=== PATIENT | female | born 1940 | race Caucasian/White ===

== ENCOUNTER 2024-04-11 20:31 | Inpatient (IN) | payer OTHER, SELFPAY ==
[2024-04-11 14:43] VITALS: BP 106/48
[2024-04-11 14:57] LABS: % Basophils 0.4 % (0-2); % Eosinophils 0.8 % (0-6); % Immature Granulocytes 0.9 % (0-0.5); % Lymphocytes 9.7 % (20.5-51.1); % Monocytes 9.4 % (1.7-9.3); % Neutrophils 78.8 % (42.2-75.2); Absolute Basophils 0.1 10^3/uL (0-0.2); Absolute Eosinophils 0.1 10^3/uL (0-0.7); Absolute Immature Granulocytes 0.1 10^3/uL (0-0.05); Absolute Lymphocytes 1.2 10^3/uL (1.2-3.4); Absolute Monocytes 1.2 10^3/uL (0.1-0.6); Absolute Neutrophils 9.8 10^3/uL (1.4-6.5); Hematocrit 30.3 % (37.0-47.0); Hemoglobin 10.5 g/dL (12.0-16.0); Mean Corp Hgb Conc. 34.7 g/dL (33.0-37.0); Mean Corpuscular Hgb 31.7 pg (27.0-31.0); Mean Corpuscular Volume 91.5 fL (81.0-99.0); Mean Platelet Volume 8.7 fL (7.4-10.4); Nucleated Red Blood Cells % 0 %; Platelet Count 402 10^3/uL (130-400); Red Blood Cell Count 3.31 10^6/uL (4.20-5.40); Red Cell Dist. Width 13.3 % (11.5-14.5); White Blood Cell Count 12.5 10^3/uL (4.8-10.8)
[2024-04-11 15:16] LABS: ALT (SGPT) 26 U/L (0-35); AST (SGOT) 50 U/L (14-36); Albumin 3.5 g/dl (3.5-5.0); Alkaline Phosphatase 158 U/L (38-126); Blood Urea Nitrogen 41 mg/dl (7-17); Calcium 9.5 mg/dl (8.4-10.2); Carbon Dioxide 27 mmol/L (22-30); Chloride 90 mmol/L (98-107); Glucose 106 mg/dl (70-99); Sodium 125 mmol/L (135-145); Total Bilirubin 0.9 mg/dl (0.2-1.3); Total Protein 6.3 g/dl (6.3-8.2); eGFR > 60.00
--- NOTE | 2024-04-11 16:59 | ED.SKININJ ---
HPI-Injury
General
Chief Complaint: Skin Problem
Source: patient
Exam Limitations: none
Time Seen by Provider: 04/11/24 16:44
History of Present Illness-Injury
Initial Injury comments:
83-year-old female presents with increased redness swelling and discomfort to the left leg. She has had wounds to the left leg for quite some time and is seen by wound care. Has also recently seen family doctor. She has been on Bactrim for
cellulitis of the left leg and it is not improving. She was sent in by both wound care and family doctor for IV antibiotics. She denies fevers. She has a history of hyponatremia. She is not anticoagulated. No other complaints at this time
Phy Exam
Physical Exam
Physical Exam:
General: Well-appearing female no acute respiratory distress
HEENT: Normocephalic atraumatic
Heart: Regular rate and rhythm no murmur
Lungs: Clear no wheeze
Skin: Erythema and open wounds noted to the left leg. Erythema spreads from the toes up to the knee. This is warm to the touch and tender
Vascular: Bilateral feet are warm to the touch
Course
Orders/Labs/Results
Orders:
Orders
04/11/24 14:51
CMP [Comprehensive Metabolic Panel] Urgent
Complete Blood Count/With Diff Urgent
Magnesium Urgent
Comment: ADD ON
04/11/24 16:46
Add On- LAB Urgent
Tests Added?: magnesium
Electrocardiogram (*1) Urgent
Reason for Study: Other
Other Reason for Exam: elevated Potassium
EKG- Treatment ONCE
04/11/24 17:49
Lactic Acid Q4H
Comment: CANCEL 2nd LACTIC ACID IF 1st LACTIC ACID IS LESS THAN 2
Blood Culture Q30M
ERICA Source: Blood/Venous
Specimen Description:
04/11/24 18:11
CeFAZolin 1 GRAM [Ancef] 1 gram in 5 ml IV NOW
04/11/24 18:15
Blood Culture Q30M
ERICA Source: Blood/Venous
Specimen Description:
04/11/24 21:45
Lactic Acid Q4H
Comment: CANCEL 2nd LACTIC ACID IF 1st LACTIC ACID IS LESS THAN 2
Abnormal Lab Results
04/11/24
14:51
WBC 12.5 H 10^3/uL
(4.8-10.8)
RBC 3.31 L 10^6/uL
(4.20-5.40)
Hgb 10.5 L g/dL
(12.0-16.0)
Hct 30.3 L %
(37.0-47.0)
MCH 31.7 H pg
(27.0-31.0)
Plt Count 402 H 10^3/uL
(130-400)
Abs Immat Gran (auto) 0.1 H 10^3/uL
(0-0.05)
Absolute Neuts (auto) 9.8 H 10^3/uL
(1.4-6.5)
Absolute Monos (auto) 1.2 H 10^3/uL
(0.1-0.6)
Immature Gran % 0.9 H %
(0-0.5)
Neutrophils % 78.8 H %
(42.2-75.2)
Lymphocytes % 9.7 L %
(20.5-51.1)
Monocytes % 9.4 H %
(1.7-9.3)
Sodium 125 L mmol/L
(135-145)
Potassium 6.0 H mmol/L
(3.5-5.1)
Chloride 90 L mmol/L
(98-107)
BUN 41 H mg/dl
(7-17)
Glucose 106 H mg/dl
(70-99)
AST 50 H U/L
(14-36)
Alkaline Phosphatase 158 H U/L
(38-126)
04/11/24 14:51
04/11/24 14:51
Vital Signs
Initial and Last Documented VS:
Initial Vital Signs
Temp Pulse Resp BP Pulse Ox
97.8 F 71 18 106/48 100
04/11/24 14:43 04/11/24 14:43 04/11/24 14:43 04/11/24 14:43 04/11/24 14:43
Last Documented Vital Signs
Temp Pulse Resp BP Pulse Ox
97.8 F 71 18 106/48 100
04/11/24 14:43 04/11/24 14:43 04/11/24 14:43 04/11/24 14:43 04/11/24 14:43
MDM/Problems Addressed
Differential Diagnosis Includes:
Cellulitis left leg not responding to oral antibiotics as outpatient. Start Ancef IV. Review of labs demonstrate hyponatremia. Her sodium is 125. No priors to compare however they show me labs from last week which demonstrated sodium 128. Due
to failure of outpatient treatment for cellulitis will admit to hospital.
*Critical Care Note
Total Time (30-74mins, 75-104mins- exclusive of procedures): Not Applicable
ED Attending Note
-
Portions of this chart may have been created with voice recognition software.� Occasional wrong word or��sound alike� substitutions may have occurred due to the inherent limitations of voice recognition software.
Discharge Plan
Departure
Patient Disposition: Admit
Date of Disposition: 04/11/24
Time of Disposition: 18:15
Presentation/result/management discussed w/ accepting MD/DO: Hospitalist
Discharge Problem:
Cellulitis
Interventions
Interventions:
*Risk Screen - Suicide Last Done: 04/11/24 14:43
*General Assessment Last Done: 04/11/24 14:43
*ED COVID-19 Vaccine History Last Done: 04/11/24 14:43
Discharge Date and Time
Print Language: MAORI
[2024-04-11 17:23] LABS: Magnesium 2.1 mg/dl (1.6-2.3)
[2024-04-11 17:45] VITALS: BP 121/59
[2024-04-11 18:10] LABS: Lactic Acid 0.9 mmol/L (0.7-2.0)
[2024-04-11] MEDS: TYLENOL 650 MG PO (18:33)
[2024-04-11] MEDS: MOTRIN 400 MG PO (18:35)
--- NOTE | 2024-04-11 18:53 | HPS.HSE ---
Family Physician
-
Family Physician: Dakotah Diallo MD
Chief Complaint
-
Left lower extremity ulceration/circumferential erythema
History of Present Illness
83-year-old female complaining of redness, swelling and discomfort to her left leg starting approximately 5 to 6 days ago she has a left lateral malleolus wound for the past 1.5 months with history of venous insufficiency diagnosed by Dr. Braun
October 2023.. She states she had a ulcer to her right lower extremity lateral malleolus in the spring 2023 Dr. Braun did a saphenous vein ablation bilateral thighs and right lower extremity in October 2023 the wound is still present linear in
shape and she is following with wound care Dr. Soto at [facility]. She states the left lower extremity has become red over the past 5 to 6 days and swollen with +2 edema she has a blister to the dorsal aspect of the foot just below
the third metatarsal circumferential erythema from the foot up to knee. She denies any injury. She was placed on Bactrim by her PCP. She is been on Bactrim approximately 5 days with no improvement. She was sent to the ER by wound care and PCP
recommendations for IV antibiotics. 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
Medical History
Past Medical History
Past Medical History: Reports Other
Additional Past Medical History:
hyponatremia
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
autoimmune alopecia
Chronic venous insufficiency Dx October 2023
Past Surgical History: Reports Other
Additional Past Surgical History:
Appendectomy
Tonsillectomy
Saphenous vein ablation bilateral thighs and right lower extremity October 2023
Lower facelift approximately 10 years ago
Social History
Tobacco: Non-smoker
Alcohol: Daily (States measures out 4 ounces of wine every night)
Drug: None
Personal:
Living: With Family ( Vasyl)
Employment: Retired
Family History
Family History: Other (Mother breast CA, father COPD history venous insufficiency)
Allergies / Home Medications
Allergies reflects when Allergies were last updated in [facility].
Home Medications with original date entered in [facility]
Allergy/Medication List:
Allergies
Allergy/AdvReac Type Severity Reaction Status Date / Time
No Known Allergies Allergy Unverified 04/11/24 14:47
Home Medications
ascorbic acid (vitamin C) 500 mg tablet (Vitamin C) 500 mg PO DAILY 04/11/24
calcium 600 mg (as carbonate)-vitamin D3 10 mcg (400 unit) tablet (Calcium 600 + D(3)) 1 tab PO DAILY 04/11/24
cetirizine 10 mg tablet (Zyrtec) 10 mg PO DAILYPRN PRN allergies 04/11/24
denosumab 60 mg/mL subcutaneous syringe (Prolia) 60 mg SC [id number] 04/11/24
gabapentin 300 mg capsule 300 mg PO TID 04/11/24
magnesium oxide 250 mg PO DAILY 04/11/24
omega [id number] oil 1,000 mg (120 mg-180 mg) capsule (Fish Oil) 2 cap PO DAILY 04/11/24
sulfamethoxazole 800 mg-trimethoprim 160 mg tablet (Bactrim DS) 1 tab PO BID 04/11/24
therapeutic multivitamin 1 tab PO DAILY 04/11/24
Review of Systems
-
History Source: Patient
A 12 point ROS was completed and negative except as noted: Yes
Constitutional: Denies Fever, Fatigue or Chills
EENT: Denies Sore Throat or Runny Nose
Respiratory: Denies Cough or Trouble Breathing
Cardiac: Denies Chest Pain, Diaphoresis, Palpitations or Syncope
Abdomen/GI: Denies Abdominal Pain, Nausea, Vomiting, Diarrhea, Constipated, Bloody Stools or Black Stools
: Denies Dysuria, Frequency, Flank Pain, Incontinence, Difficulty Voiding or Urgency
Musculoskeletal: Reports Edema (+3 edema from knee to foot with circumferential erythema, blister dorsal aspect foot base of third metatarsal, bilateral malleolar ulcerations left 1.5 months right spring 2023); Denies Joint Pain
Skin: Denies Itching or Rash
Neurological: Denies Dizzy, Headache or Weakness
Endocrine: Reports No Symptoms
Hematologic/Lymphatic: Reports No Symptoms
Psych: Reports Calm
Physical Exam
Vital Signs
Vital Signs
Temp Pulse Resp BP Pulse Ox
97.8 F 83 20 121/59 98
04/11/24 14:43 04/11/24 18:45 04/11/24 17:45 04/11/24 17:45 04/11/24 18:30
Physical Exam
General: Conversant; No Fever or Chills
HEENT: NormoCephalic, Anicteric, Moist mucous membranes, PERRLA, Aneth Conjunctivae and No Ptosis
Respiratory: Clear; No Wheezes, Rales or Rhonchi
Cardiac: S1/S2, Regular Rhythm and Peripheral Edema (Left lower extremity +3); No Murmur, Rub or Gallop
Breast: Deferred by me
GI: Soft, Non Tender, Non Distended, Normal Bowel Sounds and No Hepatosplenomegaly
Rectal: Deferred by Provider
Musculoskeletal: No Clubbing, No Cyanosis and Edema, Left Lower Extremity (+3 edema from knee to foot with circumferential erythema, blister dorsal aspect foot base of third metatarsal, bilateral malleolar ulcerations left 1.5 months right spring
2023); No Edema, Left Upper Extremity, Edema, Right Upper Extremity or Edema, Right Lower Extremity
Skin: Warm and Dry; No Rash
Neuro: AO x 3, No Motor Deficits, Cranial Nerves Intact and No Sensory Deficits; No Slurred Speech, Facial Droop, Tremors or Sedated
Psych: Calm
Laboratory Results
-
04/11/24 14:51
04/11/24 14:51
Laboratory Results
Lactic Acid 0.9 mmol/L (0.7-2.0) 04/11/24 17:49
Total Bilirubin 0.9 mg/dl (0.2-1.3) 04/11/24 14:51
AST 50 U/L (14-36) H 04/11/24 14:51
ALT 26 U/L (0-35) 04/11/24 14:51
Alkaline Phosphatase 158 U/L (38-126) H 04/11/24 14:51
Data Reviewed
-
Lab Data: Labs Reviewed by me
Impression/Plan
-
Impression/plan:
Admit to telemetry
#Acute LEFT lower extremity cellulitis with chronic bilateral malleolar ulcerations
#Chronic RIGHT lower malleolar ulceration since Spring 2023
#Chronic Venous insufficiency-follows with Dr. Braun
#History of saphenous vein ablation bilateral thighs and right lower leg
WBC 12.5 with left shift, afebrile 97.8, HR 83, 121/59
Patient follows with wound care Dr. Soto at [facility]
-Check venous Doppler left lower extremity
-IV Cefazolin
-Consult [place] wound care
-Follow CBC, CMP, blood cultures x 2 sent by ER
-Consult PT/OT/case management
#Acute hyperkalemia
K 6.0
-Patient given Lokelma 10 g in ER
-Will repeat BMP every 6 hours on 04/12 @0200
-Stop Bactrim has been on approximately 5 days
EKG: NSR 81 bpm, QTc 425 MS no peaked T waves, no previous EKGs
-Check magnesium
#Acute hyponatremia with history of reported hyponatremia
NA 125-no prior labs
Will fluid restrict to 40 ounces suspect due to daily alcohol use
-Check urine NA, urine Osmo, serum Osmo, TSH with free T4 reflex, random cortisol
#Daily alcohol use
Drinks 4 ounces of wine daily states measures that out in a measuring cup
MSAs screen with protocol
-IV thiamine, IV folate
#Hypomagnesemia
Magnesium 2.1
-Continue Mag-Ox to 50 mg daily
#Anemia
Hgb 10.5, MCV 91.5
Will check iron panel, B12, folate
DVT prophylaxis
Subcu Lovenox
Diet regular, fluid restrict 40 ounce
Full code
[2024-04-11 19:30] LABS: Osmolality Serum 275 mOsm/kg (275-300)
[2024-04-11 19:39] LABS: Phosphorus 6.3 mg/dl (2.5-4.5)
--- NOTE | 2024-04-11 19:56 | W.PN.UPDATE ---
Update Note
Progress Note Update
This is an addendum to the H&P written by Dinah Baltazar on 04/11/2024.� Patient seen examined independent with [facility].
83-year-old female past medical history of venous insufficiency, hyponatremia, autoimmune alopecia, chronic ulcerations, daily alcohol use presenting with redness of chronic ulceration of left lower extremity lateral malleolus over the past 5 to 6
days.� Started on Bactrim by primary care.
Labs show leukocytosis.� Sodium 125.� Potassium 6.
Patient with cellulitis of right lower extremity.� Cefazolin.� Wound care.� Check venous ultrasound.
Hyperkalemia likely secondary to Bactrim recently started.� Hyponatremia likely secondary to alcohol use.
40-ounce fluid restriction.� Lokelma given.� Recheck BMP in 6 hours.
[2024-04-11 19:59] LABS: TSH Reflex To Free T4 2.45 uIU/ml (0.47-4.68)
[2024-04-11] MEDS: LOKELMA 10 GRAM PO (20:52)
[2024-04-11 20:56] VITALS: BP 105/90
[2024-04-11] MEDS: ANCEF 5 IV (21:58)
[2024-04-11 22:00] VITALS: BP 100/42
[2024-04-12] VITALS (10 sets, daily range): BP systolic 93–125; BP diastolic 42–63; PULSE 87–88; O2SAT 98–99; BMI 18.1
[2024-04-12 01:20] LABS: Osmolality Urine 318 mOsm/kg (300-900)
[2024-04-12 03:34] LABS: Alcohol None Detected; Blood Urea Nitrogen 31 mg/dl (7-17); Calcium 9.1 mg/dl (8.4-10.2); Carbon Dioxide 27 mmol/L (22-30); Chloride 96 mmol/L (98-107); Estimated Creatinine Clearance 46 ml/min; GGTP 57 U/L (12-43); Glucose 95 mg/dl (70-99); Phosphorus 5.3 mg/dl (2.5-4.5); Potassium 5.3 mmol/L (3.5-5.1); Sodium 131 mmol/L (135-145); eGFR > 60.00
[2024-04-12 03:40] LABS: B-Hydroxybutyrate 0.34 mmol/L (0.02-0.27)
[2024-04-12] MEDS: TYLENOL 650 MG PO ×3 (03:52→21:26)
[2024-04-12] MEDS: THIAMINE INJECTION 200 MG IV ×3 (04:08→20:49)
[2024-04-12] MEDS: NEURONTIN 300 MG PO ×4 (04:08→21:18)
[2024-04-12 04:14] LABS: Urine Sodium 19 mmol/L (30-90)
[2024-04-12] MEDS: ANCEF 5 IV ×3 (05:17→21:19)
[2024-04-12 06:32] LABS: % Basophils 0.7 % (0-2); % Eosinophils 1.2 % (0-6); % Immature Granulocytes 1.2 % (0-0.5); % Lymphocytes 13.4 % (20.5-51.1); % Monocytes 11.1 % (1.7-9.3); % Neutrophils 72.4 % (42.2-75.2); Absolute Basophils 0.1 10^3/uL (0-0.2); Absolute Eosinophils 0.1 10^3/uL (0-0.7); Absolute Immature Granulocytes 0.1 10^3/uL (0-0.05); Absolute Lymphocytes 1.2 10^3/uL (1.2-3.4); Absolute Neutrophils 6.3 10^3/uL (1.4-6.5); Hematocrit 28.8 % (37.0-47.0); Mean Corp Hgb Conc. 34.7 g/dL (33.0-37.0); Mean Corpuscular Hgb 31.3 pg (27.0-31.0); Mean Corpuscular Volume 90.3 fL (81.0-99.0); Mean Platelet Volume 8.7 fL (7.4-10.4); Nucleated Red Blood Cells % 0 %; Platelet Count 406 10^3/uL (130-400); Red Blood Cell Count 3.19 10^6/uL (4.20-5.40); Red Cell Dist. Width 13.2 % (11.5-14.5); White Blood Cell Count 8.7 10^3/uL (4.8-10.8)
[2024-04-12 06:38] LABS: INR 1.06; PT 14.1 Sec (11.4-14.6)
[2024-04-12 06:39] LABS: APTT 40.3 Sec (23.4-35.0)
[2024-04-12 07:11] LABS: ALT (SGPT) 23 U/L (0-35); AST (SGOT) 46 U/L (14-36); Albumin 2.8 g/dl (3.5-5.0); Alkaline Phosphatase 150 U/L (38-126); Blood Urea Nitrogen 26 mg/dl (7-17); Calcium 8.6 mg/dl (8.4-10.2); Carbon Dioxide 27 mmol/L (22-30); Chloride 97 mmol/L (98-107); Estimated Creatinine Clearance 46 ml/min; Glucose 96 mg/dl (70-99); Potassium 4.9 mmol/L (3.5-5.1); Sodium 131 mmol/L (135-145); Total Bilirubin 0.6 mg/dl (0.2-1.3); Total Protein 5.6 g/dl (6.3-8.2); eGFR > 60.00
[2024-04-12 07:30] LABS: Cortisol, Random 18.9 ug/dl
--- NOTE | 2024-04-12 08:02 | W.PN.HOSP.TC ---
Today's Communication/Plan
-
Possible discharge tomorrow with continued improvement
Assessment / Plan
Assessment / Plan
83-year-old female past medical history of venous insufficiency, hyponatremia, autoimmune alopecia, chronic ulcerations, daily alcohol use presenting with redness of chronic ulceration of left lower extremity lateral malleolus over the past 5 to 6
days.� Started on Bactrim by primary care. Labs show leukocytosis.� Sodium 125.� Potassium 6. Patient with cellulitis of right lower extremity.� Cefazolin.� Wound care.� Check venous ultrasound. Hyperkalemia likely secondary to Bactrim recently
started.� Hyponatremia likely secondary to alcohol use. 40-ounce fluid restriction.� Lokelma given.� Recheck BMP in 6 hours.
#Acute LEFT lower extremity cellulitis with chronic bilateral malleolar ulcerations
#Chronic RIGHT lower malleolar ulceration since Spring 2023
#Chronic Venous insufficiency-follows with Dr. Braun
#History of saphenous vein ablation bilateral thighs and right lower leg
WBC 12.5 with left shift, afebrile 97.8, HR 83, 121/59
Patient follows with wound care Dr. Soto at [facility]
Left lower extremity Dopplers are negative
Continue IV Ancef, wound care
PT/OT rec home PT
#Acute hyperkalemia
Due to Bactrim use
Resolved status post Lokelma
Permanently discontinue Bactrim
#Acute hyponatremia with history of reported hyponatremia
NA 125-no prior labs
TSH and cortisol normal, improving on fluid restriction
Continue fluid restriction, trend sodium
#Daily alcohol use
Drinks 4 ounces of wine daily states measures that out in a measuring cup
MSAs screen with protocol
-IV thiamine, IV folate
#Hypomagnesemia
Magnesium 2.1
Continue Mag-Ox to 50 mg daily
#Anemia
Hgb 10.5, MCV 91.5
Monitor
DVT prophylaxis - Subcu Lovenox
Full Code
Total time spent to see the patient on the floor, examine the patient, review data and lab results, discuss treatment plan with patient, nursing staff around 40 minutes.
Physical Exam
General: No acute distress
HEENT: Normocephalic, Atraumatic, EOMI, MMM
Respiratory: Clear to Auscultation bilaterally
Cardiac: Normal S1/S2, Regular Rate and Rhythm
GI: Soft, Nontender, Nondistended, Normal Bowel Sounds
Extremities: No Clubbing, Cyanosis
Left lower extremity erythema noted
Neuro: Nonfocal/Grossly Intact
Anticipated Discharge: Within 24 hours
Subjective/Interval History
-
Date of Service: April 12, 2024
Complains of left lower extremity pain. No nausea, no vomiting. No fever, no chest pain.
Objective Data
-
Labs:
Laboratory Results
04/12/24 04/12/24 04/12/24
02:00 02:54 05:08
WBC 8.7
Hgb 10.0 L
Hct 28.8 L
Plt Count 406 H
PT 14.1
INR 1.06
APTT 40.3 H
Sodium Cancelled 131 L 131 L
Potassium Cancelled 5.3 H 4.9
Chloride Cancelled 96 L 97 L
Carbon Dioxide Cancelled 27 27
BUN Cancelled 31 H 26 H
Creatinine Cancelled 0.8 0.8
Glucose Cancelled 95 96
Calcium Cancelled 9.1 8.6
Total Bilirubin 0.6
AST 46 H
ALT 23
Alkaline Phosphatase 150 H
Vital Signs:
Vital Signs
Temp Pulse Resp BP Pulse Ox
97.5 F 84 18 125/53 98
04/12/24 03:20 04/12/24 03:20 04/12/24 03:20 04/12/24 03:20 04/12/24 03:20
I&O
04/11/24 04/12/24 04/13/24
06:59 06:59 06:59
Intake Total 240 / 240
Balance 240 / 240
[2024-04-12] MEDS: FOLVITE 1 MG PO (08:38)
[2024-04-12] MEDS: MAGNESIUM OXIDE 250 MG PO (08:39)
[2024-04-12] MEDS: OSCAL 500 + D 500 MG PO (08:39)
[2024-04-12] MEDS: THERAGRAN 1 TABLET PO (08:39)
--- NOTE | 2024-04-12 10:18 | WOUNDNOTE ---
RIGHT LATERAL ANKLE
--- NOTE | 2024-04-12 10:19 | WOUNDNOTE ---
BILATERAL LOWER LEGS
--- NOTE | 2024-04-12 10:19 | WOUNDNOTE ---
LEFT LATERAL ANKLE/FOOT
--- NOTE | 2024-04-12 10:25 | WOUNDNOTE ---
WON RN note: Patient admitted with cellulitis of L leg.
See H&P for complete history.
PMH: Venous ulcers on legs-goes to a wound care center, PVD-went to Dr. Braun in past.
Wound Location and type/assessment: Patient admitted with: Lower leg venous ulcers and cellulitis/edema of L leg. Base of venous ulcers very dry, monique adherent slough. R leg small drainage and no edema. Patient showed me a picture of R leg wound
when it first started and is much improved now. L leg lateral near ankle venous ulcer, drainage small, no odor. Has open blister on L dorsal foot/base of toes and peeling skin surrounding lower leg. +2 edema of lower leg and foot. L heel intact,
blanchable red. R heel with cracked dry fissure, not new patient states. Ultrasound of legs negative for DVT. Uses Eucerin cream to moisturize legs and for wound care, Triad ointment (over the counter) and dry dressing. Tried Santyl and other
dressings in past and made it worse reports patient. Patient requesting that we continue using Triad dressing. Using Compression stockings knee high daily. + palpable pedal pulses. Sacrum intact. Appetite: Fair, dietary on consult.
Pressure redistribution devices in place: On Accumax and turns self. Pillow under calves.
Plan: Moisturized legs with Vaseline, will order mineral oil. Used patient's own Triad, nurse aware we don't carry product here and can use her own. Adaptic, abd pad and mike to cover. R heel with foam and L with abd pad. Eder wraps applied knee
high, patient tolerating. Will confirm orders with hospitalist and updated nurse Li.
Updated care plan and will follow as needed.
Note to case management of equipment requested for discharge: VN
Recommend follow up at current wound care center upon discharge. and Dr. Braun.
--- NOTE | 2024-04-12 12:20 | CM ---
CM reviewed chart, patient seen beside with spouse, initial assessment completed. Patient resides with her spouse in a split level home, one small step to enter, 10 steps to second floor where bedroom is. Patient denies use of DME, denies VN or SNF,
reports outpatient vestibular PT in past. Patient PCP Dakotah Diallo, pharmacy [facility], confirms prescription coverage. CM discussed consult for substance use counseling, offered [facility]. Patient declines, reports she has less than
half a cup of wine every other night. Patient remains on IV antibiotics. CM will continue to follow for all discharge planning needs.
Plan; home with spouse, watch for potential home PT needs.
[2024-04-12 16:36] LABS: Urine Albumin 1+ (Neg - Trace); Urine Bilirubin Negative (Negative); Urine Character Clear (Clear); Urine Color Yellow; Urine Glucose Negative (Negative); Urine Ketone 1+ (Negative); Urine Leukocyte Negative (Negative); Urine Nitrite Negative (Negative); Urine Occult Blood Negative (Negative); Urine Urobilinogen Negative (Neg - 1+)
[2024-04-12 16:43] LABS: Urine Bacteria Many (Negative); Urine Red Blood Cell 0-2 /HPF (0-2); Urine White Cell 0-2 /HPF (0-5)
[2024-04-12 16:47] LABS: Amphetamines Negative (Negative)
[2024-04-12 16:48] LABS: Barbiturates Negative (Negative); Benzodiazepines Positive (Negative); Buprenorphine Negative (Negative); Cocaine Negative (Negative); Marijuana Positive (Negative); Methadone Negative (Negative); Methamphetamines Negative (Negative); Opiates Negative (Negative); Phencyclidine Negative (Negative); Tricyclic Antidepressants Negative (Negative)
[2024-04-12 16:58] LABS: Fentanyl, Urine Negative (Negative)
[2024-04-12] MEDS: LOVENOX 40 MG SC (17:56)
[2024-04-13 03:00] VITALS: BP 114/54
[2024-04-13] MEDS: ANCEF 5 IV ×2 (05:30→13:45)
[2024-04-13] MEDS: TYLENOL 650 MG PO (05:35)
[2024-04-13 06:00] VITALS: BMI 17.9
[2024-04-13 06:41] LABS: Hematocrit 28.3 % (37.0-47.0); Hemoglobin 9.7 g/dL (12.0-16.0); Mean Corp Hgb Conc. 34.3 g/dL (33.0-37.0); Mean Corpuscular Hgb 31.2 pg (27.0-31.0); Mean Platelet Volume 8.8 fL (7.4-10.4); Platelet Count 404 10^3/uL (130-400); Red Blood Cell Count 3.11 10^6/uL (4.20-5.40); Red Cell Dist. Width 13.2 % (11.5-14.5); White Blood Cell Count 8.3 10^3/uL (4.8-10.8)
[2024-04-13 07:18] LABS: ALT (SGPT) 20 U/L (0-35); AST (SGOT) 46 U/L (14-36); Albumin 2.9 g/dl (3.5-5.0); Alkaline Phosphatase 142 U/L (38-126); Blood Urea Nitrogen 20 mg/dl (7-17); Calcium 8.4 mg/dl (8.4-10.2); Carbon Dioxide 27 mmol/L (22-30); Chloride 98 mmol/L (98-107); Estimated Creatinine Clearance 60 ml/min; Glucose 99 mg/dl (70-99); Potassium 4.9 mmol/L (3.5-5.1); Sodium 131 mmol/L (135-145); Total Bilirubin 0.7 mg/dl (0.2-1.3); Total Protein 5.7 g/dl (6.3-8.2); eGFR > 60.00
[2024-04-13 08:13] VITALS: BP 106/59
--- NOTE | 2024-04-13 09:17 | W.PN.HOSP.TC ---
Today's Communication/Plan
-
Discharge today
Assessment / Plan
Assessment / Plan
83-year-old female past medical history of venous insufficiency, hyponatremia, autoimmune alopecia, chronic ulcerations, daily alcohol use presenting with redness of chronic ulceration of left lower extremity lateral malleolus over the past 5 to 6
days.� Started on Bactrim by primary care. Labs show leukocytosis.� Sodium 125.� Potassium 6. Patient with cellulitis of right lower extremity.� Cefazolin.� Wound care.� Check venous ultrasound. Hyperkalemia likely secondary to Bactrim recently
started.� Hyponatremia likely secondary to alcohol use. 40-ounce fluid restriction.� Lokelma given.� Recheck BMP in 6 hours.
#Acute LEFT lower extremity cellulitis with chronic bilateral malleolar ulcerations
#Chronic RIGHT lower malleolar ulceration since Spring 2023
#Chronic Venous insufficiency-follows with Dr. Braun
#History of saphenous vein ablation bilateral thighs and right lower leg
WBC 12.5 with left shift, afebrile 97.8, HR 83, 121/59
Patient follows with wound care Dr. Soto at [facility]
Left lower extremity Dopplers are negative
Appreciate wound care input, resolving on IV Ancef
Medically stable for discharge on Keflex to complete a 10-day course
Prescription given for outpatient PT
Follow-up with PCP in 1 week
#Acute hyperkalemia
Due to Bactrim use
Resolved status post Lokelma
Permanently discontinue Bactrim
#Acute hyponatremia with history of reported hyponatremia
Sodium 131 today, was 125
TSH and cortisol normal, improving on fluid restriction
Continue fluid restriction upon discharge, recommend repeat BMP with PCP in 1 week
#Daily alcohol use
Drinks 4 ounces of wine daily states measures that out in a measuring cup
MSAs screen with protocol
-IV thiamine, IV folate
#Underweight
Encourage oral intake
#Hypomagnesemia
Magnesium 2.1
Continue Mag-Ox to 50 mg daily
#Anemia
Hgb 10.5, MCV 91.5
Monitor
DVT prophylaxis - Subcu Lovenox
Full Code
Physical Exam
General: No acute distress
HEENT: Normocephalic, Atraumatic, EOMI, MMM
Respiratory: Clear to Auscultation bilaterally
Cardiac: Normal S1/S2, Regular Rate and Rhythm
GI: Soft, Nontender, Nondistended, Normal Bowel Sounds
Extremities: No Clubbing, Cyanosis
Left lower extremity erythema noted
Neuro: Nonfocal/Grossly Intact
Anticipated Discharge: Today
Subjective/Interval History
-
Date of Service: April 13, 2024
Patient reports improvement in her left lower extremity pain. No fever, no vomiting. No chest pain, no shortness of breath.
Objective Data
-
Labs:
Laboratory Results
04/13/24
05:04
WBC 8.3
Hgb 9.7 L
Hct 28.3 L
Plt Count 404 H
Sodium 131 L
Potassium 4.9
Chloride 98
Carbon Dioxide 27
BUN 20 H
Creatinine 0.6
Glucose 99
Calcium 8.4
Total Bilirubin 0.7
AST 46 H
ALT 20
Alkaline Phosphatase 142 H
Vital Signs:
Vital Signs
Temp Pulse Resp BP Pulse Ox
97.9 F 73 20 106/59 97
04/13/24 08:13 04/13/24 08:13 04/13/24 08:13 04/13/24 08:13 04/13/24 08:13
I&O
04/12/24 04/13/24 04/14/24
06:59 06:59 06:59
Intake Total 240 / 240 840 / 840
Balance 240 / 240 840 / 840
[2024-04-13] MEDS: THERAGRAN 1 TABLET PO (09:30)
[2024-04-13] MEDS: NEURONTIN 300 MG PO (09:31)
[2024-04-13] MEDS: OSCAL 500 + D 500 MG PO (09:31)
[2024-04-13] MEDS: FOLVITE PO (09:32)
[2024-04-13] MEDS: THIAMINE INJECTION 200 MG IV (09:32)
[2024-04-13] MEDS: FLUSH (NSS) 2 FLUSH IV (09:33)
[2024-04-13] MEDS: MAGNESIUM OXIDE 250 MG PO (09:36)
[2024-04-13] MEDS: FOLVITE 1 MG PO (09:43)
--- NOTE | 2024-04-13 10:29 | PN.CDI ---
CDI
- -
CDI:
Physician Documentation Request
Admit Date: 04/11/24 20:31
Dear Doctor Do,
Patient admitted for cellulitis.
Please review the following and provide your response in the progress notes.
Clinical Indicators:
Height: 5' 7'
Weight: 114 lbs
BMI: 17.9
If possible, please provide an associated diagnosis related to the abnormal BMI, such as:
Underweight
Cachectic
BMI is not significant
Other
BMI < or = to 19.9
Underweight
Weight Loss
Cachectic
Anorexia
Use of terms such as suspected, likely, concern for, or probable (associated with a specific diagnosis that is being evaluated, monitored, or treated as if it exists) are acceptable and can be coded in the inpatient setting, when documented at the
time of discharge.
Thank you,
Jonna Sal RN, BSN
CDI Specialist
Available via [place] text
Please use your independent medical judgment in providing your response.
--- NOTE | 2024-04-13 10:33 | CM ---
CM reviewed chart, consult received for VN. Patient seen bedside with spouse, discussed recommendation. Patient reports she is current with outpatient PT and will be continuing services. Patient provided with IMM, signed, placed in chart. Spouse to
transport home. CM will continue to follow for all discharge planning needs.
Plan; home with spouse, continue with outpatient PT
[2024-04-13] MEDS: ROXICODONE 5 MG PO (11:49)
[2024-04-13 12:10] VITALS: BP 92/53
--- NOTE | 2024-04-13 12:30 | W.DCSUMMARY ---
Discharge Summary
Discharge Data
Date of Admission: 04/11/24
Date of Discharge: 04/13/24
-
Pending Results: No
Hospital Course
Discharge diagnosis:
Acute LEFT lower extremity cellulitis with chronic bilateral malleolar ulcerations
Acute hyperkalemia
Acute hyponatremia with a history of reported hyponatremia
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
Chronic Venous insufficiency-follows with Dr. Braun
Underweight
Chronic anemia
Hospital course:
83-year-old female with a past medical history of chronic left bilateral malleolus ulcerations, chronic right lower malleolus ulceration, venous sufficiency, anemia, and underweight who was admitted for acute left lower extremity cellulitis,
hyperkalemia, and hyponatremia. Patient was treated with Bactrim for her cellulitis prior to admission. Her Bactrim was held. She was treated with Lokelma, and her hyperkalemia resolved.
Patient also had hyponatremia. TSH and a.m. cortisol were normal. She was treated with a fluid restriction. Her sodium was 131 on the day of discharge. She has been instructed to continue a 48 ounce fluid restriction. She needs to get a repeat
BMP with her PCP in 1 week.
Patient received IV Ancef for in the hospital. Her left lower extremity cellulitis improved. She is medically stable for discharge on Keflex to complete a 10-day course. She needs to follow-up with her primary care doctor in 1 week, her usual
wound care team, and vascular surgery in the office.
Disposition: Home self-care, outpatient PT
Discharge planning: Required 38 minutes
Discharge Plan
-
Patient Disposition: Home (Routine Discharge)
Discharge Diagnosis/Procedures: Left lower extremity cellulitis, hyperkalemia, hyponatremia
Condition: Good
Diet: Regular and Restrict fluids to 48 oz
Activity: As tolerated
Driving Restrictions: As prior to admission
Blood Work: BMP with PCP in 1 week
Activity Restrictions/Additional Instructions:
Follow-up with your primary care doctor in 1 week, continue wound care.
Wound Care Instructions
Legs: clean with soap and water, Triad to base of wounds, adaptic, abd pad and mike change daily.
Moisturize legs and feet with mineral oil daily
R heel: mineral oil to cracked fissure daily
Resume compression stockings daily, can remove at bedtime
leg elevation when sitting
increase protein in diet.
Follow up at current wound care center and recommend following up with Dr. Braun.
Referrals:
Dakotah Diallo MD [Family Provider] - in one week
Srikanth Braun MD [Active] - in two to three weeks
Prescriptions:
New
cephalexin 500 mg tablet
500 mg PO QID 8 Days Qty: 32 0RF
acetaminophen [Acetaminophen Pain Relief] 500 mg tablet
1,000 mg PO Q6H PRN (Reason: fever or pain) Qty: 120 0RF
oxycodone 5 mg Tablet
5 mg PO TIDPRN PRN (Reason: moderate pain) Qty: 12 0RF
Continued
cetirizine [Zyrtec] 10 mg Tablet
10 mg PO DAILYPRN PRN (Reason: allergies)
therapeutic multivitamin Tablet
1 tab PO DAILY
ascorbic acid (vitamin C) [Vitamin C] 500 mg Tablet
500 mg PO DAILY
gabapentin 300 mg Capsule
300 mg PO TID
magnesium oxide 250 mg magnesium Tablet
250 mg PO DAILY
calcium carbonate-vitamin D3 [Calcium 600 + D(3)] 600 mg-10 mcg (400 unit) Tablet
1 tab PO DAILY
omega 5-gdd-tfy-fish oil [Fish Oil] 1,000 (120-180) mg Capsule
2 cap PO DAILY
Prolia 60 mg/mL Syringe
60 mg SC [id number]
Discontinued
sulfamethoxazole-trimethoprim [Bactrim DS] 800-160 mg Tablet
1 tab PO BID
Discharge Orders:
Discharge Patient (As Directed); Ordered 04/13/24
Ordered By: Ry Grant
Discharge Date and Time
Discharge Date/Time: 04/13/24 14:52
Print Language: OMANI
== END 2024-04-13 14:52 | disposition home or self-care (01) | DRG 603 ==
LOC: 4 WEST ACU 20:31
PROVIDERS: Clinical Nurse Specialist Family Health; Emergency Medicine; Physician Assistant; ADMITTING PHYSICIAN Hospitalist; ATTENDING PHYSICIAN Family Medicine; EMERGENCY PHYSICIAN Emergency Medicine; FAMILY PHYSICIAN Internal Medicine
DX: L03.115 Cellulitis of right lower limb (principal); E87.1 Hypo-osmolality and hyponatremia; L97.329 Non-pressure chronic ulcer of left ankle with unspecified severity; L97.319 Non-pressure chronic ulcer of right ankle with unspecified severity; Z68.1 Body mass index [BMI] 19.9 or less, adult; E87.5 Hyperkalemia; I87.2 Venous insufficiency (chronic) (peripheral); L03.116 Cellulitis of left lower limb; R63.6 Underweight; E83.42 Hypomagnesemia; D64.9 Anemia, unspecified
CPT/HCPCS: 80048; 80053; 80306; 80307; 81003; 81015; 82010; 82077; 82533; 82977; 83605; 83735; 83930; 83935; 84100; 84300; 84443; 85025; 85027; 85610; 85730; 87040; 93005; 93971; 97162; 97166; 99285